=== PATIENT | male | born 1950 | race Caucasian/White ===

== ENCOUNTER 2018-07-01 09:49 | Day surgery (SDC) | payer OTHER ==
[~2018-07-01] VITALS: Ht 182.9 cm; Wt 96.6 kg
[2018-07-01] VITALS (8 sets, daily range): BP systolic 127–155; BP diastolic 74–82; PULSE 66–74; RESP 15–21; Ht 182.9 cm; Wt 96.6 kg
[2018-07-01] MEDS ORDERED: LEVO100T82 PO (10:18)
[2018-07-01] MEDS ORDERED: EZET1TAB36 PO (10:18)
[2018-07-01] MEDS ORDERED: LOSA50TA14 PO (10:18)
--- NOTE | 2018-07-01 10:34 | PREAC ---
Date/Time of Note Date/Time of Note DATE: 07/01/18 TIME: 10:31 Anesthesia Eval and Record Evaluation Time Pre-Procedure Interview DATE: 07/01/18 TIME: 10:31 Age 67 Sex male NPO: 8 hrs Preoperative diagnosis left knee medial and lateral meniscus tear Planned procedure left knee OPA, meniscectomy Past Medical History Past Medical History: Includes Cardio: HTN (on losartan), Dyslipidemia (on vytorin) Endo: Hypothyroid (on synthroid) Musculoskeletal: Other (pre existing left shoulder pain, cervical spine disease) Surgery & Anesthesia Issues No known issue Meds Anticoagulation: No Beta Tiffanie within 24 hr: No Reason Beta Tiffanie not given: Pt. not on B-Tiffanie Reported Medications Losartan Potassium* (Losartan Potassium*) 50 Mg Tablet, 50 MG PO DAILY, TAB 07/01/18 Levothyroxine Sodium* (Levoxyl*) 100 Mcg Tablet, 100 MCG PO BEFORE BREAKFAST, #30 TAB 07/01/18 Ezetimibe/Simvastatin (Vytorin 10-20 mg Tablet) 1 Each Tablet, 1 EACH PO QPM, TAB 07/01/18 Meds reviewed: Yes Allergies Coded Allergies: No Known Allergy (Unverified , 07/01/18) Allergies Reviewed: Yes Labs/Studies Labs Reviewed: Reviewed by anesthesiologist test: N/A Studies: ECG, CXR Pre-procedure Exam Airway: Adequate mouth opening, Adequate thyromental dist Mallampati: Mallampati II Teeth: Normal (lower retainers intact) Lung: Normal Heart: Normal ASA Physical Status ASA physical status: 2 Emergency: None Planned Anesthetic General/MAC: LMA Planned Pain Management Parenteral pain med, Local by surgeon Pre-operative Attestations Prior to commencing anesthesia and surgery, the patient was re-evaluated, there was verification of: *The patient's identity *The results of appropriate recent lab work and preoperative vital signs *The above evaluation not changing prior to induction *Anesthetic plan, risk benefits, alternative and complications discussed with patient/family; questions answered; patient/family understands, accepts and wishes to proceed. KAREN ORO July 01, 2018 10:34
[2018-07-01] MEDS ORDERED: PROPOFOL 20 ML ONE (11:22)
[2018-07-01] MEDS ORDERED: CEFAZOLIN 1 GM INJ ONE (11:22)
[2018-07-01] MEDS ORDERED: LIDOCAINE 2% (SDV) 5 ML INJ ONE (11:22)
[2018-07-01] MEDS ORDERED: FENTAnyl 50 MCG/ML VIAL ONE (11:23)
[2018-07-01] MEDS ORDERED: MIDAZOLAM 1 MG/ML 2 ML INJ ONE (11:23)
[2018-07-01] MEDS ORDERED: ROPIVACAINE 0.5 % 30 ML VIAL ONE (11:24)
[2018-07-01] MEDS ORDERED: ROPIVACAINE 0.2% 20 ML VIAL ONE (11:31)
[2018-07-01] MEDS ORDERED: MEPERIDINE 25 MG INJ IV PRN (12:00)
[2018-07-01] MEDS ORDERED: HYDROmorphONE 1 MG/5 ML IV SYRINGE IV PRN ×3 (12:00)
[2018-07-01] MEDS ORDERED: OXYCODONE/ACETAMINOPHEN (5/325) TAB PO PRN ×2 (12:00)
[2018-07-01] MEDS ORDERED: ONDANSETRON 4 MG INJ IV PRN ×2 (12:00→12:30)
[2018-07-01] MEDS ORDERED: hydrALAzine 20 MG INJ IV PRN (12:00)
[2018-07-01] MEDS ORDERED: LABETALOL HCL 20MG INJ IV PRN (12:00)
--- NOTE | 2018-07-01 12:03 | HPN ---
Date/Time of Note Date/Time of Note DATE: 07/01/18 TIME: 12:03 Interval H&P Admission Note Pt. seen H&P reviewed: No system changes ANEL PETERSON MD July 01, 2018 12:03
--- NOTE | 2018-07-01 12:07 | SIPON ---
Date/Time of Note Date/Time of Note DATE: 07/01/18 TIME: 12:05 Operative Report Preoperative Diagnosis LEFT KNEE MEDIAL AND LATERAL MENISCUS TEARS Postoperative Diagnosis LEFT KNEE MEDIAL AND LATERAL MENISCAL TEARS Operation/Procedure Performed LEFT KNEE ARTHROSCOPY WITH PARTIAL MEDIAL AND LATERAL MENISCECTOMIES Surgeon see signature line production assistant MELISSA BILL PA-C Anesthesia: general Estimated blood loss: minimal Transfusion Required none Specimen NONE Grafts/Implants none Complications none ANEL PETERSON MD July 01, 2018 12:06
[2018-07-01] MEDS ORDERED: DEXAMETHASONE 4 MG/ML 5 ML INJ ONE (12:18)
[2018-07-01] MEDS ORDERED: ONDANSETRON 4 MG INJ ONE (12:18)
[2018-07-01] MEDS ORDERED: METOCLOPRAMIDE 10 MG INJ ONE (12:18)
[2018-07-01] MEDS ORDERED: FAMOTIDINE 20 MG INJ ONE (12:18)
[2018-07-01] MEDS ORDERED: HYDROCODONE/APAP (5/325) TAB PO PRN ×2 (12:30)
[2018-07-01] MEDS ORDERED: morphine 10 MG INJ IM PRN (12:30)
[2018-07-01] MEDS ORDERED: morphine 2 MG INJ IV PRN (12:30)
[2018-07-01] MEDS ORDERED: KETOROLAC 30 MG INJ ONE (12:37)
--- NOTE | 2018-07-01 13:34 | PAC ---
Date/Time of Note Date/Time of Note DATE: 07/01/18 TIME: 13:34 Post-Anesthesia Notes Post-Anesthesia Note Last documented vital signs Vital Signs Date Temp Pulse Resp B/P (MAP) Pulse Ox O2 O2 Flow FiO2 Time Delivery Rate 07/01/18 66 18 127/75 96 Room Air 13:20 (92) 07/01/18 98.3 13:15 Activity: WNL Respiratory function: WNL Cardiovascular function: WNL Mental status: Baseline Pain reasonably controlled: Yes Hydration appropriate: Yes Nausea/Vomiting absent: Yes KAREN ORO July 01, 2018 13:34
--- NOTE | 2018-07-01 15:40 | OPR ---
DATE OF OPERATION: 07/01/2018 PREOPERATIVE DIAGNOSES: 1. Left knee medial meniscus tear. 2. Left knee lateral meniscus tear. POSTOPERATIVE DIAGNOSES: 1. Left knee medial meniscus tear. 2. Left knee lateral meniscus tear. PROCEDURE PERFORMED: Left knee arthroscopy with partial medial and lateral meniscectomies. SURGEON: Jonah Buchanan MD GRINDING ROOM SUPERVISOR: DONELL Marie ANESTHESIA: General endotracheal. ANESTHESIOLOGIST: Jeremiah Villasenor CRNA ESTIMATED BLOOD LOSS: Minimal. COMPLICATIONS: None. SPECIMENS: None. INDICATIONS: Mino is a 67-year-old male who developed left knee pain posteriorly, medially and late rally with locking and catching. X-rays and MRI scan revealed well maintained joint spaces without a dvanced osteoarthritis but tearing of the medial and lateral menisci. After failing conservative twan sures, he elected to proceed with surgical intervention. DESCRIPTION OF PROCEDURE: The patient was brought to the operating room, placed supine on the operat ing table. General anesthesia was induced and he was given prophylactic antibiotics. The correct vidal rgical site had been identified and marked preoperatively. A tourniquet was placed high on the left thigh. The leg was placed in a leg velez and the foot of bed was dropped. The left lower extremity was prepped and draped in sterile surgical fashion and a timeout was called. The tourniquet was kothari sed to 250 mmHg. Standard anteromedial and anterolateral arthroscopy portals were created. ARTHROSCOPIC FINDINGS: There is no effusion. Articular surfaces were well maintained in the patello femoral compartment. The ACL and PCL were intact. In the lateral compartment, there was a significa nt tear of the posterior horn of the lateral meniscus extending around to the posterior aspect of the mid zone at the junction of the posterior third. The posterior root was intact. Cartilage surfaces were still fairly well maintained in the lateral compartment grade II chondromalacia only. In the m edial compartment, there was a tear of the posterior horn of the medial meniscus especially on the un dersurface. There was a biconcave tibial plateau. There was grade II chondromalacia throughout the distal femur and grade I chondromalacia on the proximal tibia medially. Partial medial meniscectomy: Using a combination of arthroscopic shaving and biting instruments, a p artial medial meniscectomy was performed. Approximately 80% of the posterior horn, 80% of the utilities and maintenance supervisor omedial corner was involved and needed to be resected out. Smooth transition was created with the in tact medial meniscus. Partial lateral meniscectomy: Attention was then turned to the lateral meniscus. With the arthrosco pe alternating between medial and lateral portals and using a combination of arthroscopic shaving and biting instruments, a partial lateral meniscectomy was performed. There was a bird beak type tear a long the anterior horn of the lateral meniscus which needs to be resected out. In all, approximately 30% to 40% of the lateral meniscus was involved. A smooth transition was created with the intact po sterior aspect of the lateral meniscus. The knee was copiously irrigated and instruments were removed. All loose were evacuated from t he knee joint. Local anesthetic was injected. Portals were closed with Steri-Strips followed by mj rile dressing. The patient was brought to recovery room in stable condition. There were no complica tions. GRINDING ROOM SUPERVISOR: The assistance of Eugenie Vail was essential throughout this case to help provide safe varus and valgus stress to the knee as well as to help hold and manipulate the arthroscope while the so briceno used both hands to perform the procedure. A skilled information services assistant is always necessary in these cases. Dictated By: JONAH PHIPPS/ANGELA Conf#: [id number] DID#: [id number]
== END 2018-07-01 15:01 | disposition home or self-care (01) ==
LOC: SDS 09:49
PROVIDERS: ATTEND Orthopaedic Surgery Sports Medicine
DX: M23.252 Derangement of posterior horn of lateral meniscus due to old tear or injury, left knee (principal); M23.222 Derangement of posterior horn of medial meniscus due to old tear or injury, left knee
CPT/HCPCS: 29880; 71045; J0690; J1100; J1885; J2175; J2250; J2405; J2765; J2795; J3010